=== PATIENT | male | born 1985 | race Two or more races ===

== ENCOUNTER 2023-04-12 23:10 | Emergency (ER) | payer OTHER ==
[2023-04-12 23:25] VITALS: BP 128/67; PULSE 76; RESP 18; TEMP 98.2; BMI 37.2
[2023-04-13 00:28] LABS: BASO % 0.9 % (0-2.0); EOS % 3.2 % (0-4.5); HEMATOCRIT 43.4 % (35.4-49); HEMOGLOBIN 14.9 GM/dL (11.7-16.9); LYMPH % 13.5 % (8-40); MCHC 34.3 g/dl (32.0-35.9); MEAN CELL VOLUME 84.5 fl (80-96); MEAN PLT VOLUME 7.6 fl (7.5-11.1); MONO % 8.7 % (3.8-10.2); NEUT % 73.7 % (42.8-82.8); PLATELET COUNT 279 10^3/uL (134-434); RBC 5.14 M/mm3 (4.00-5.60); RDW 14.6 % (11.9-15.9); WHITE BLOOD COUNT 11.6 K/mm3 (4.0-10.0)
[2023-04-13 00:47] LABS: POTASSIUM 3.9 mmol/L (3.5-5.1)
[2023-04-13 00:50] LABS: BLOOD UREA NITROGEN 19.5 mg/dL (7-18); CALCIUM 8.6 mg/dL (8.5-10.1)
[2023-04-13 00:53] LABS: CREATININE 0.8 mg/dL (0.55-1.3)
[2023-04-13] MEDS ORDERED: KETOROLAC TROMETHAMINE 30 MG/1 ML VIAL IVPUSH ONE (00:54)
[2023-04-13 00:55] LABS: BILIRUBIN,TOTAL 0.5 mg/dL (0.2-1)
[2023-04-13] MEDS ORDERED: KETOROLAC TROMETHAMINE 30 MG/1 ML VIAL ONE (01:23)
== END 2023-04-13 02:08 | disposition home or self-care (01) ==
LOC: JER 23:10
PROC: 3E0333Z Introduction of Anti-inflammatory into Peripheral Vein, Percutaneous Approach (ICD-10-PCS; principal; 2023-04-13)
DX: R20.2 Paresthesia of skin (principal); M54.50 Low back pain, unspecified; H53.8 Other visual disturbances; M54.2 Cervicalgia; M79.604 Pain in right leg
CPT/HCPCS: 36415; 80053; 82607; 85025; 99284-25